=== PATIENT | female | born 1985 | race African-American/Black ===

== ENCOUNTER 2019-12-09 11:07 | Emergency (ER) | payer SELFPAY ==
[2019-12-09] MEDS ORDERED: Baclofen 10 MG Tab PO ONE (11:48)
[2019-12-09] MEDS ORDERED: traMADol 50 MG Tab PO ONE (11:48)
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
== END 2019-12-09 13:04 | disposition home or self-care (01) ==
LOC: FB.ED 11:07
DX: S46.911A Strain of unspecified muscle, fascia and tendon at shoulder and upper arm level, right arm, initial encounter (principal); S86.912A Strain of unspecified muscle(s) and tendon(s) at lower leg level, left leg, initial encounter; Z88.6 Allergy status to analgesic agent; V43.62XA Car passenger injured in collision with other type car in traffic accident, initial encounter; Y92.410 Unspecified street and highway as the place of occurrence of the external cause
CPT/HCPCS: 73030; 73562; 99283; A9270

== ENCOUNTER 2020-02-01 19:47 | Emergency (ER) | payer SELFPAY ==
[2020-02-01] MEDS ORDERED: traMADol 50 MG Tab PO ONE (19:48)
--- NOTE | 2020-02-01 20:38 | EDM.PDOC ---
ED HPI GENERAL MEDICAL PROBLEM - General Chief Complaint: General Stated Complaint: FALL Time Seen by Provider: 02/01/20 20:05 Source of Information: Reports: Patient History Limitations: Reports: No Limitations - History of Present Illness INITIAL COMMENTS - FREE TEXT/NARRATIVE: c/o R shoulder and L knee pain pt moved from [place] 3m ago, not working, lives with her 3 children--ages 13, 10 and 8 she was going up stairs, wearing ankle length skirt, no shoes on, she stepped on the hem of her skirt and fell 3 steps to the floor landing on her R side, she now has pain in her R shoulder and L knee she fell outside 2m ago and had similar pain, her R shoulder pain was gone in 2- 3w and has not reoccurred until today imaging of R shoulder 2m ago showed Grade 1-2 R AC separation with clavicle riding higher than acromion R handed given tramadol 100 mg 2m ago which had helped allergy to ibuprofen, says she swells - Related Data Allergies Allergy/AdvReac Type Severity Reaction Status Date / Time ibuprofen Allergy Rash and Verified 02/01/20 20:03 Swelling Home Meds: Home Meds NK [No Known Home Meds] 02/01/20 [History] Past Medical History - Past Health History Medical/Surgical History: Denies Medical/Surgical History Musculoskeletal History: Reports: Other (See Below) Other Musculoskeletal History: History of right shoulder and left knee pain. ED ROS GENERAL - Review of Systems Review Of Systems: See Below Constitutional: Reports: No Symptoms HEENT: Reports: No Symptoms Respiratory: Reports: No Symptoms Cardiovascular: Reports: No Symptoms Endocrine: Reports: No Symptoms GI/Abdominal: Reports: No Symptoms : Reports: No Symptoms Musculoskeletal: Reports: No Symptoms Skin: Reports: No Symptoms Neurological: Reports: No Symptoms Psychiatric: Reports: No Symptoms Hematologic/Lymphatic: Reports: No Symptoms Immunologic: Reports: No Symptoms ED EXAM, GENERAL - Physical Exam Exam: See Below Exam Limited By: No Limitations General Appearance: Alert, WD/WN, Other (pleasant) Head: Atraumatic, Normocephalic Neck: Normal Inspection, Supple, Non-Tender, Full Range of Motion Respiratory/Chest: No Respiratory Distress Extremities: Other (R shoulder with 1+ tender at AC joint without definite stepoff, 1+ tender at anterior G-H joint line, good ROM, L knee with patellar compression tender (L only) with tender on underaspect of patella) Neurological: Alert, Oriented, Normal Cognition, No Motor/Sensory Deficits, Disoriented Psychiatric: Normal Affect, Normal Mood Skin Exam: Warm, Dry, Intact, Normal Color, No Rash Lymphatic: No Adenopathy Course - Re-Assessments/Exams Free Text/Narrative Re-Assessment/Exam: 02/01/20 20:44 pt with R AC separation 2m ago, seems to have reaggravated the injury given #4 tabs of TO GO tramadol encouraged to take APAP on a scheduled basis x 1 wk given shoulder immobilizer Departure - Departure Time of Disposition: 20:31 Disposition: Home, Self-Care 01 Condition: Good Clinical Impression: Patellofemoral arthralgia of left knee, Sprain of acromioclavicular ligament of right shoulder - Discharge Information *PRESCRIPTION DRUG MONITORING PROGRAM REVIEWED*: Not Applicable *COPY OF PRESCRIPTION DRUG MONITORING REPORT IN PATIENT [place]: Not Applicable Instructions: Patellofemoral Pain Syndrome, Acromioclavicular Separation Referrals: PCP,None [Primary Care Provider] - Forms: ED Department Discharge Additional Instructions: For pain and inflammation, take acetaminophen 500 mg 2 tabs 3 times a day for 1 week, longer if needed. For pain, as needed, take tramadol 50 mg 1 tab every 6 hours. No alcohol. Use shoulder immobilizer for next 3-5 days to rest the AC (acromioclavicular) joint. Use ice for 10 minutes 4 times a day to right shoulder for 2 days. Avoid activities that cause pain until you are able to tolerate them. See your doctor in one week. Sepsis Event Note (ED) - Evaluation Sepsis Screening Result: No Definite Risk
== END 2020-02-01 20:45 | disposition home or self-care (01) ==
LOC: FB.ED 19:47
DX: S43.51XA Sprain of right acromioclavicular joint, initial encounter (principal); M25.562 Pain in left knee; Z88.6 Allergy status to analgesic agent
CPT/HCPCS: 99283; A9270-GY